=== PATIENT | male | born 1985 | race Caucasian/White ===

== ENCOUNTER 2017-02-24 13:36 | Emergency (ER) | payer OTHER ==
[2017-02-24] MEDS ORDERED: IV NORMAL SALINE 1,000ML 1,000 ML IV SCH (13:42)
[2017-02-24] MEDS ORDERED: fentaNYL PF 100 MCG/2 ML VIAL IV PRN (13:45)
[2017-02-24] MEDS ORDERED: IV NORMAL SALINE 1,000ML 1,000 ML ONE (14:01)
--- NOTE | 2017-02-24 14:26 | RAD ---
Right RIBS with chest, 02/24/2017: History: Fall, pain No fracture or rib abnormality is detected. There is no evidence of an underlying pneumothorax, hemothorax or pulmonary infiltrate. The heart size is normal. IMPRESSION: No acute right rib abnormality is detected.
--- NOTE | 2017-02-24 14:29 | PHYS DOC ---
General Chief Complaint: MULTIPLE TRAUMA/FALL Stated Complaint: MULTIPLE COMPAINTS Time Seen by MD: 13:42 Source: patient Exam Limitations: no limitations Problems: History of Present Illness Initial Comments Patient is a 32-year-old male brought to the ED by EMS for injuries sustained from a fall. Patient states that prior to arrival he was attempting to move a stove into his residence. He was using a elvin, he says he was a low the appliance on the stairs when he lost control of it. He states that the appliance did not fall on him, it pushed him backwards and he tried to jump clear of it. He says he fell down a few steps landing on his chest on the concrete floor. He denies head trauma loss of consciousness no neck pain however a c-collar was placed in the field by EMS protocol. He denies any shortness of breath would like to be evaluated for possible rib fracture. Pain is described at the anterior and right lateral rib cage worse with deep breaths and palpation and relieved by rest. Patient also has small abrasions of the right ASIS, elbow, and left knee. He refuses treatment for these stating that they are minor. His tetanus is up-to -date. No head trauma or headache no new or progressive symptoms, patient is stable on ED arrival. Occurred: just prior to arrival Severity: moderate Injuries/Pain Location: upper extremity, chest, lower extremity Context: lost balance Loss of Consciousness: no loss of consciousness Modifying Factors: worse with jarring, worse with movement, improves with rest Associated Symptoms: chest pain, other Allergies: Coded Allergies: acetaminophen (Verified Allergy, Intermediate, 02/24/17) Past Medical History Medical History: other (hypothyroidism, asthma, chronic back pain) Surgical History: noncontributory Social History Smoker: cigarettes Alcohol: none Drugs: none Review of Systems Constitutional: denies chills, denies diaphoresis, denies fever, denies malaise Eyes: denies blindness, denies blurred vision, denies drainage, denies photophobia Ears, Nose, Mouth, Throat: denies ear discharge, denies nose discharge, denies epistaxis, denies mouth pain, denies loose teeth, denies throat pain Respiratory: see HPI, denies cough, denies shortness of breath, denies wheezing Cardiovascular: see HPI, denies palpitations, denies syncope Gastrointestinal: denies abdominal pain, denies nausea, denies vomiting Musculoskeletal: denies back pain, denies joint swelling, denies neck pain Skin: see HPI Psychiatric/Neurological: denies headache, denies numbness, denies paresthesia Physical Exam General Appearance: WD/WN, no apparent distress Head: no evidence of injury (normocephalic atraumatic, negative Gonzalez sign negative raccoon eyes no scalp or face swelling/ecchymosis/tenderness, no palpable bony deformity or bony tenderness) Eyes: bilateral eye normal inspection, bilateral eye PERRL, bilateral eye EOMI Ears, Nose, Mouth, Throat: hearing grossly normal, no evidence of ENT injury ( no ear or nose discharge no fluid behind TMs bilaterally, TMJs are nontender bilaterally), no dental injury Neck: non-tender, full range of motion, normal alignment, other (C collar removed by me upon initial evaluation, no palpable bony deformity no bony tenderness noted patient with full normal range of motion) Cardiovascular/Respiratory: normal breath sounds, no respiratory distress ( anterior chest is tender diffusely, no swelling ecchymosis or palpable bony deformity no discrete bone tenderness breath sounds are clear, full, and symmetric with no paradoxical motion) Gastrointestinal: non tender, soft Back: no CVA tenderness, no vertebral tenderness Extremities: normal range of motion, non-tender Neurologic/Psychiatric: 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 No foreign bodies wounds are scabbed no surrounding erythema or palpable bony tenderness) [place] Coma Score Best Eye Response: (4) open spontaneously Best Verbal Response: (5) oriented Best Motor Response: (6) obeys commands [place] Total: 15 Orders, Labs, Meds PATIENT: LATRICE FLEMING ACCOUNT: [id number] : 1985 LOCATION: ER AGE: 32 SEX: M EXAM STATUS: REG ER ORD. PHYSICIAN: МАРИЯ ANDRES DO REASON: fall, right rib pain PROCEDURE: RIBS RIGHT AND PA CHEST Right RIBS with chest, 02/24/2017: History: Fall, pain No fracture or rib abnormality is detected. There is no evidence of an underlying pneumothorax, hemothorax or pulmonary infiltrate. The heart size is normal. IMPRESSION: No acute right rib abnormality is detected. DICTATED AND SIGNED BY: JAMIL DEAN MD DATE: 02/24/17 5341 CC: PCP,SONDRA; МАРИЯ ANDRES DO ~ Patient's vital signs remained stable throughout the ED course. No new or progressive symptoms I discussed the treatment plan at length with the patient and his questions were answered. Expressed agreement and understanding of treatment plan. Departure Time of Disposition: 14:36 Disposition: 01 HOME, SELF-CARE Diagnosis: chest contusion, fall with abrasions Condition: GOOD Patient Instructions: Abrasions, Chest Contusion, [id number], VIS, Tetanus, Diphtheria (Td); Tetanus, Diphtheria, Pertussis (Tdap) - CDC Additional Instructions: Activity as tolerated. Keep abrasions covered with sterile dressing until completely healed. Wash wounds twice daily with soap and warm water, blot dry. Change dressing after each wash. Ice to painful areas 15-20 minutes 4-6 times daily for the first 48 hours. 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 Aggressive hydration with Gatorade and water. [id number] ibuprofen as needed for baseline discomfort. Prescription: Vicoprofen No. 10 Take medications with food to avoid nausea vomiting and abdominal discomfort. Follow-up with your doctor in 5-7 days for recheck. Return to ED with new or changing symptoms. МАРИЯ ANDRES DO Feb 24, 2017 14:29
[2017-02-24] MEDS ORDERED: HYDR-79 PO (14:43)
[2017-02-24] MEDS ORDERED: HYDROcodon/IBUPROFEN 7.5/200MG 1 TAB TABLET PO ONE (15:00)
[2017-02-24] MEDS ORDERED: DIPHTH,PERTUSS(ACELL),TET TOX 0.5 ML DISP.SYRIN. VAX IM ONE (15:00)
[2017-02-24] MEDS ORDERED: ONDANSETRON ODT 4 MG TAB.RAPDIS PO ONE (15:00)
[2017-02-24 15:13] VITALS: BP 130/83
== END 2017-02-24 15:09 | disposition home or self-care (01) ==
LOC: ER 13:36
DX: S20.211A Contusion of right front wall of thorax, initial encounter (principal); S50.311A Abrasion of right elbow, initial encounter; S80.212A Abrasion, left knee, initial encounter; E03.9 Hypothyroidism, unspecified; J45.909 Unspecified asthma, uncomplicated; G89.29 Other chronic pain; F17.210 Nicotine dependence, cigarettes, uncomplicated; Z88.6 Allergy status to analgesic agent; W10.8XXA Fall (on) (from) other stairs and steps, initial encounter; Y93.89 Activity, other specified; Y99.8 Other external cause status; Y92.89 Other specified places as the place of occurrence of the external cause
CPT/HCPCS: 71101; 90471; 90715; 96361; 96374; 99284; J3010; Q0162; J7030